=== PATIENT | male | born 1985 | race Two or more races ===

== ENCOUNTER 2024-09-27 21:50 | Emergency (ER) | payer MEDICAID, SELFPAY ==
[2024-09-27 21:51] VITALS: BMI 23.3
--- NOTE | 2024-09-27 22:04 | XR_ITS ---
Examination: Knee, right , 3 views Technique: Knee AP, lateral, oblique 3 views Date and time of exam: September 27, 2024 10:33 PM Indications: Patient fell today with injury to the knee, knee pain. Findings: Moderate tricompartment osteoarthritis. No fracture or dislocation Impression: No fracture or dislocation
[2024-09-27 22:05] VITALS: BP 122/78; PULSE 87; RESP 18; TEMP 37; O2SAT 96
--- NOTE | 2024-09-27 22:05 | PD.EDRME ---
Rapid Medical Screening Exam RME Arrival date/time: 09/27/24 21:50 39 yo m present to ED for knee injury I have greeted and performed a focused initial assessment of this patient. A comprehensive ED assessment and evaluation of the patient, analysis of all test results, and completion of the medical decision making process will be conducted by additional ED providers. Chief Complaint: Extremity Injury, Lower Time Seen by Provider: 09/27/24 21:57
[2024-09-27] MEDS: KETOROLAC INJ 60 MG/2 ML VIAL 30 MG IM (22:29)
--- NOTE | 2024-09-27 23:24 | PRELIM_ITS ---
Radiographs of the right knee joint (3 views). September 27, 2024 2233 hours Clinical History: knee injury Comparison: None. Findings: The tibiofemoral and patellofemoral knee joints are normal in configuration and alignment. The visualized bones demonstrate normal density. There is no fracture or dislocation. The periarticular soft tissues are normal. Impression: Unremarkable radiographs of the right knee joint. Report Electronically Signed By: Ranjeet Lopez 09/27/2024 11:24:26 PM [EST]
--- NOTE | 2024-09-27 23:31 | EDNOTE_ITS ---
Lower Extremity Injury RME/HPI General Chief Complaint: Extremity Injury, Lower Stated Complaint: RT KNEE PAIN AFTER FALL Time Seen by Provider: 09/27/24 21:57 Arrival date/time: 09/27/24 21:50 39 year old male present to emergency room with c/o of right knee injury s/p GLF today. LOCATION:knee SEVERITY: Symptoms are described as being severe with limitations on activities of daily living QUALITY: Symptoms are described as being dull or achy CONTEXT: GLF injurying knee DURATION/TIMING: The symptoms started approximately 1 day ago and have been constant this then. ASSOCIATED SYMPTOMS: The patient is unable to identify any other associated symptoms. MODIFYING FACTORS: The patient is unable to identify any alleviating or aggravating symptoms. PERTINENT ROS: no fevers, no headache, no neck or chest pain, no unexplained nausea or vomiting, no focal neurological deficits REVIEW OF SYSTEMS: See History of Present Illness - with the exception of those mentioned in the history of present illness, all other systems reviewed and reported as negative GENERAL: In general the patient is awake, interactive, in an emergency department gurney. HEAD/EYES/EARS/NOSE/THROAT: normo-cephalic, atraumatic, mucus membranes are moist, anicteric, palpebral conjunctiva is pink, trachea is midline. BACK: normal range of motion without pain. NEUROLOGICAL: cranio-facial features are symmetric, moves all four extremities equally without obvious limitations or weakness. EXTREMITY: right medial aspect of knee tenderness, ROM/Strenght intact no tenderness to palpation over the long bones or large joints of the bilateral upper no joint swelling, no joint erythema, no signs of trauma, no unilateral leg swelling and no peripheral edema. SKIN: warm, dry, well-perfused, no jaundice, no rash, no telangiectasias or petechia. PSYCH: calm, cooperative, no evidence of psychosis or agitation RME / HPI RME / HPI Narrative: 09/27/24 21:50 39 yo m present to ED for knee injury I have greeted and performed a focused initial assessment of this patient. A comprehensive ED assessment and evaluation of the patient, analysis of all test results, and completion of the medical decision making process will be conducted by additional ED providers. Related Data Previous Rx's ?Medication ?Instructions ?Recorded doxycycline hyclate 100 mg tablet 100 mg PO BID #14 ta bs 11/07/23 metformin 500 mg tablet 500 mg PO BID #60 tabs 11/07 tramadol 50 mg tablet 50 mg PO Q8H PRN pain #9 tab s 11/08/23 Allergies Allergy/AdvReac Type Severity Reaction Status Date / Time No Known Allergies Allergy Verified 11/04/23 17:57 Course Course Course Narrative: Medical Decision Making Patient presenting for evaluation of R knee pain. Vital signs revealed no major abnormalities, no hypoxia, no tachypnea, no hypotension. Diagnosis at this time most consistent with sprain, strain. Differential diagnosis considered including contusion, bruise, extremity pain, fracture.? These were thought to be less likely given the history, exam, and workup. Diagnostic testing performed: Xray imaging shows no evidence of fracture. Treatments provided included toradol, with improvement in symptoms. Rest, fluids, and [id number] symptomatic treatments were recommended. Recommend over the counter Tylenol and Ibuprofen for fever/general discomfort. Recommend rest, ice, elevation, and compression. Follow up in one or two days, present to ER with new or worsening symptoms. Quality Measures none Orders Category Date Time Status XR knee RT 3V Stat Exams 09/27/24 22:04 Taken Ketorolac Inj [Toradol Inj] Med 09/27/24 22:04 Discontinued 30 mg IM X1 ONE Vital Signs Vital signs: Vital Signs Temperature 98.6 F 09/27/24 22:05 Pulse Rate 87 09/27/24 22:05 Respiratory Rate 18 09/27/24 22:05 Blood Pressure 122/78 09/27/24 22:05 Pulse Oximetry (%) 96 09/27/24 22:05 Oxygen Delivery Method Room Air 09/27/24 22:05 Extremity Injury, Lower Patient data External records reviewed:: [facility] previous records Clinical information provided by:: patient Social determinants that could affect healthcare access:: none Patient has the following chronic illnesses:: n/a How is presenting disease/condition affected by chronic disease/condition?: uneffected by Evaluation data The following diagnostics were reviewed and interpreted by me:: radiology exam(s) Lab and/or radiology exams considered but not ordered:: n/a Interpretation Summary: n/a Medications / Prescriptions Medications or Prescriptions considered but not ordered:: n/a Medication administrations:: Medication Administration History Discontinued Medications Ketorolac Tromethamine (Ketorolac Inj 60 Mg/2 Ml Vial) 30 mg IM X1 ONE Stop: 09/27/24 22:05 Last Admin: 09/27/24 22:29 Dose: 30 mg Documented By: CB n/a Consultations Consultation(s) initiated? (list below): No Diagnosis Most likely diagnosis given after review of the tests above:: knee sprain Admission Indicated Admission indicated?: not indicated Admission Request Was there a request for admission?: No Disposition Plan Disposition Plan: Discharge Discharge Attestation Discharge Attestation: The patient and all family members were given an opportunity to ask questions and understood the discharge instructions. Discharge instructions specifically effects, indications for sooner follow up or return to the emergency department, and the expected course of current diagnosis. Patient condition: Stable Discharge Plan Plan Patient Disposition: HOME (Self Care) Prescriptions/Referrals Prescriptions/Med Rec: No Action doxycycline hyclate 100 mg tablet 100 mg PO BID Qty: 14 0RF metformin 500 mg tablet 500 mg PO BID Qty: 60 0RF tramadol 50 mg tablet 50 mg PO Q8H PRN (Reason: pain) Qty: 9 0RF Referrals: No Primary/Family,Physician [Primary Care Provider] - In 1 week Problem List Clinical Impression: Knee sprain Patient/Caregiver Discharge Instructions Education Materials: ED Knee Sprain Print Language: Cam[place]onian Stand Alone Forms: Shireen Award Info., Patient Portal Info Letter
== END 2024-09-27 23:44 | disposition home or self-care (01) ==
PROVIDERS: Emergency Provider Emergency Medicine
DX: S83.91XA Sprain of unspecified site of right knee, initial encounter (principal); W18.30XA Fall on same level, unspecified, initial encounter
CPT/HCPCS: 73562; 96372; 99283; J1885